=== PATIENT | female | born 1970 | race American Indian/Alaskan Native ===

== ENCOUNTER 2017-05-08 12:26 | Emergency (ER) | payer MEDICAID, OTHER ==
--- NOTE | 2017-05-08 13:16 | Cat Scan Report ---
CRANIAL CT SCAN: Slurred speech, right sided weakness. Serial contiguous axial images were obtained through the cranium. Intravenous contrast material was not administered. The ventricles are normal in size and appearance. There is no mass effect or midline shift. No areas of abnormally increased or decreased attenuation are seen. No mass lesion is seen. The mastoid air cells and visualized portions of the sinuses are normal. IMPRESSION: Cranial CT scan within normal limits.
[2017-05-08 14:00] LABS: Basophils % (Auto) 0.9 % (0.0-1.8); Eosinophils % (Auto) 1.8 % (0.0-4.3); Hematocrit 40.8 % (30.3-42.9); Hemoglobin 14.1 gm/dl (10.1-14.3); Mean Corpuscular HGB Conc 35 % (30-34); Mean Corpuscular Hemoglobin 32 pg (28-32); Mean Corpuscular Volume 93 fl (79-97); Platelet Count 316 K/mm3 (140-440); Red Blood Count 4.37 M/mm3 (3.65-5.03); Red Cell Distribution Width 13.1 % (13.2-15.2); White Blood Count 7.5 K/mm3 (4.5-11.0)
--- NOTE | 2017-05-08 14:04 | Emergency Department Report ---
ED Neuro Deficit HPI - General Chief Complaint: Neuro Symptoms/Deficit Stated Complaint: NEURO SYMPTOMS Time Seen by Provider: 05/08/17 13:02 Source: patient Mode of arrival: Wheelchair Limitations: No Limitations - History of Present Illness Initial Comments: Patient is a 46-year-old female past medical history of stroke who presents with new onset of right-sided weakness which began today at 6 in the morning. She says she woke up and she had worsening right sided weakness it was worse from her baseline. She went her neurologist who wanted her to be seen in the emergency department. Patient states that she has a mild headache the headache is a 4 out of 10 located to the frontal lobe does not radiate anywhere it's been going on for the last couple hours it was gradual in onset. Patient has no nausea or vomiting. She takes a daily aspirin daily and blood pressure medications. No fevers no trauma no diarrhea no abdominal pain. - Related Data Allergies/Adverse Reactions: Allergies Allergy/AdvReac Type Severity Reaction Status Date / Time Sulfa (Sulfonamide Allergy Rash Verified 05/08/17 12:30 Antibiotics) ED Review of Systems ROS: Stated complaint: NEURO SYMPTOMS Other details as noted in HPI Constitutional: denies: chills, fever Eyes: denies: eye pain, eye discharge, vision change ENT: denies: ear pain, throat pain Respiratory: denies: cough, shortness of breath, wheezing Cardiovascular: denies: chest pain, palpitations Endocrine: no symptoms reported Gastrointestinal: denies: abdominal pain, nausea, diarrhea Genitourinary: denies: urgency, dysuria, discharge Musculoskeletal: denies: back pain, joint swelling, arthralgia Skin: denies: rash, lesions Neurological: weakness, numbness. denies: headache, paresthesias Psychiatric: denies: anxiety, depression Hematological/Lymphatic: denies: easy bleeding, easy bruising ED Past Medical Hx - Past Medical History Hx Hypertension: Yes Hx CVA: Yes (x 12) - Surgical History Additional Surgical History: C section - Social History Smoking Status: Never Smoker Substance Use Type: None ED Neuro Physical Exam - General Limitations: No Limitations General appearance: alert Suspected Stroke: Yes - Head Head exam: Present: atraumatic, normocephalic - Eye Eye exam: Present: normal appearance, PERRL, EOMI - ENT ENT exam: Present: normal exam - Neck Neck exam: Present: normal inspection - Respiratory Respiratory exam: Present: normal lung sounds bilaterally - Cardiovascular Cardiovascular Exam: Present: regular rate - GI/Abdominal GI/Abdominal exam: Present: soft - Extremities Exam Extremities exam: Present: normal inspection, other (right upper arm and right lower leg weakness ) - Neurological Exam Neurological exam: Present: alert, other (right sided facial droop) - NIHSS Assessment Interval: 24 hours post onset of symptoms +-20 minutes 1a. Level of Consciousness: alert 1b. LOC Questions: answers 1 question correctly 1c. LOC Commands: performs 1 task correctly 2. Best Gaze: normal 3. Visual: no visual loss 4. Facial Palsy: complete paralysis 5b. Motor Arm Right: no movement 5a. Motor Arm Left: no drift 6a. Motor Leg Left: no drift 6b. Motor Leg Right: no movement 7. Limb Ataxia: absent 8. Sensory: mild/moderate sensory loss 9. Best Language: no aphasia 10. Dysarthria: mild/moderate dysarthria 11. Extinction/Inattention: no abnormality Total Score: 15 Stroke Severity: Moderate Stroke - Psychiatric Psychiatric exam: Present: normal affect - Skin Skin exam: Present: warm ED Course Vital Signs 05/08/17 05/08/17 05/08/17 12:30 13:07 13:15 Temperature 98.4 F Pulse Rate 86 64 68 Respiratory 18 17 Rate Blood Pressure 128/92 O2 Sat by Pulse 100 98 Oximetry 05/08/17 05/08/17 05/08/17 13:31 13:45 14:01 Temperature Pulse Rate 69 73 78 Respiratory 20 12 32 H Rate Blood Pressure 141/89 141/89 164/99 O2 Sat by Pulse 99 97 Oximetry 05/08/17 05/08/17 05/08/17 14:15 14:22 14:25 Temperature Pulse Rate 87 70 Respiratory 20 16 Rate Blood Pressure 164/99 O2 Sat by Pulse 98 99 Oximetry 05/08/17 15:08 Temperature Pulse Rate Respiratory 18 Rate Blood Pressure O2 Sat by Pulse Oximetry - Lab Data Result diagrams: 05/08/17 13:30 05/08/17 13:30 Lab Results 05/08/17 05/08/17 05/08/17 Range/Units 12:39 13:30 13:30 WBC 7.5 (4.5-11.0) K/mm3 RBC 4.37 (3.65-5.03) M/mm3 Hgb 14.1 (10.1-14.3) gm/dl Hct 40.8 (30.3-42.9) % MCV 93 (79-97) fl MCH 32 (28-32) pg MCHC 35 H (30-34) % RDW 13.1 L (13.2-15.2) % Plt Count 316 (140-440) K/mm3 Lymph % (Auto) 44.9 H (13.4-35.0) % [place] % (Auto) 7.4 H (0.0-7.3) % Eos % (Auto) 1.8 (0.0-4.3) % Baso % (Auto) 0.9 (0.0-1.8) % Lymph # 3.4 (1.2-5.4) K/mm3 [place] # 0.6 (0.0-0.8) K/mm3 Eos # 0.1 (0.0-0.4) K/mm3 Baso # 0.1 (0.0-0.1) K/mm3 Seg Neutrophils % 45.0 (40.0-70.0) % Seg Neutrophils # 3.4 (1.8-7.7) K/mm3 PT 13.6 (12.2-14.9) Sec. INR 0.99 (0.87-1.13) APTT 28.8 (24.2-36.6) Sec. Thrombin Time (15.1-19.6) Sec. Sodium (137-145) mmol/L Potassium (3.6-5.0) mmol/L Chloride (98-107) mmol/L Carbon Dioxide (22-30) mmol/L Anion Gap mmol/L BUN (7-17) mg/dL Creatinine (0.7-1.2) mg/dL Estimated GFR ml/min BUN/Creatinine Ratio % Glucose (65-100) mg/dL POC Glucose 92 (70-105) Calcium (8.4-10.2) mg/dL Troponin T (0.00-0.029) ng/mL 05/08/17 05/08/17 Range/Units 13:30 13:30 WBC (4.5-11.0) K/mm3 RBC (3.65-5.03) M/mm3 Hgb (10.1-14.3) gm/dl Hct (30.3-42.9) % MCV (79-97) fl MCH (28-32) pg MCHC (30-34) % RDW (13.2-15.2) % Plt Count (140-440) K/mm3 Lymph % (Auto) (13.4-35.0) % [place] % (Auto) (0.0-7.3) % Eos % (Auto) (0.0-4.3) % Baso % (Auto) (0.0-1.8) % Lymph # (1.2-5.4) K/mm3 [place] # (0.0-0.8) K/mm3 Eos # (0.0-0.4) K/mm3 Baso # (0.0-0.1) K/mm3 Seg Neutrophils % (40.0-70.0) % Seg Neutrophils # (1.8-7.7) K/mm3 PT (12.2-14.9) Sec. INR (0.87-1.13) APTT (24.2-36.6) Sec. Thrombin Time 17.0 (15.1-19.6) Sec. Sodium 139 (137-145) mmol/L Potassium 3.8 (3.6-5.0) mmol/L Chloride 99.5 (98-107) mmol/L Carbon Dioxide 24 (22-30) mmol/L Anion Gap 19 mmol/L BUN 12 (7-17) mg/dL Creatinine 0.7 (0.7-1.2) mg/dL Estimated GFR > 60 ml/min BUN/Creatinine Ratio 17 % Glucose 91 (65-100) mg/dL POC Glucose (70-105) Calcium 9.6 (8.4-10.2) mg/dL Troponin T < 0.010 (0.00-0.029) ng/mL - EKG Data -: EKG Interpreted by Me 05/08/17 15:44 EKG shows normal sinus rhythm no ST segment elevation or T-wave inversion. - Radiology Data Radiology results: report reviewed, image reviewed CT head: Show no acute intracranial process. - Medical Decision Making Chief medical diagnosis: Ischemic stroke Differential medical diagnosis: [place] paralysis, hypokalemia, hypoglycemia, hemorrhagic stroke I will get CT head, CBC, CMP, troponin, EKG, PTT and INR Patient woke up with her symptoms she is not a candidate for TPA and she woke up at 6 in the morning. Patient wants to leave AMA discussed risks of leaving AMA and the need for patient to have angioedema imaging and MRI to further see why she is having some knee strokes. Discussed with patient and she states that she wants to leave to take care of her younger son and she doesn't trust anyone to take care of her son other than her. Patient states that her partner will take her home. She also states that she takes a low-dose aspirin at home and her neurologist who sent her over here or write her a refill of her medications. - Core Measures Measure Exclusions: not indicated - Thrombolytic Inclusion/Exclusion Thrombolytic Exclusion Criteria: Symptom Onset > 3 Hours Thrombolytic Inclusion Criteria: NIH Stroke Scale Deficit, Age 18 or Older Critical care attestation.: If time is entered above; I have spent that time in minutes in the direct care of this critically ill patient, excluding procedure time. ED Disposition Clinical Impression: Right sided weakness, Tension headache, Facial paralysis on right side CVA (cerebral vascular accident) Qualifiers: CVA mechanism: unspecified Qualified Code(s): I63.9 - Cerebral infarction, unspecified Disposition: DC-07 LEFT AGAINST MED ADVICE Is pt being admited?: No Does the pt Need Aspirin: No Condition: Stable Instructions: Self Care Measures After a Stroke (ED) Additional Instructions: Please follow-up with your neurologist and please come back to the emergency department after having anymore weakness or side to come back for your stroke symptoms. Referrals: JEYSON GRAHAM MD [Staff Physician] - 3-5 Days Forms: AMA Form
[2017-05-08 14:12] LABS: INR 0.99 (0.87-1.13); Partial Thromboplastin Time 28.8 Sec. (24.2-36.6)
[2017-05-08 14:15] LABS: Anion Gap 19 mmol/L; BUN/Creatinine Ratio 17; Blood Urea Nitrogen 12 mg/dL (7-17); Calcium 9.6 mg/dL (8.4-10.2); Carbon Dioxide 24 mmol/L (22-30); Chloride 99.5 mmol/L (98-107); Glucose 91 mg/dL (65-100); Potassium 3.8 mmol/L (3.6-5.0); Sodium 139 mmol/L (137-145)
[2017-05-08] MEDS ORDERED: SUBLIMAZE IV ONE (14:51)
[2017-05-08 16:22] VITALS: BP 132/84
== END 2017-05-08 16:48 | disposition left against medical advice (07) ==
LOC: ED 12:26
DX: G51.0 Bell's palsy (principal); I63.9 Cerebral infarction, unspecified; G44.209 Tension-type headache, unspecified, not intractable; I10 Essential (primary) hypertension; Z88.2 Allergy status to sulfonamides
CPT/HCPCS: 36415; 70450; 80048; 82962; 84484; 85025; 85610; 85670; 85730; 93005; 93010; 96374; 99284; J3010

== ENCOUNTER 2019-04-08 09:40 | Outpatient (CLI) | payer MEDICAID ==
[2019-04-08] MEDS ORDERED: WATER FOR INJ Sterile (PF) 10 ML ONE (10:48)
[2019-04-08] MEDS ORDERED: SINCALIDE 5 MCG VIAL IV ONE ×2 (10:48→12:38)
--- NOTE | 2019-04-08 13:38 | Nuclear Medicine Report ---
NUCLEAR MEDICINE HEPATOBILIARY SCAN INDICATION / CLINICAL INFORMATION: Nausea and vomiting with right upper quadrant pain. TECHNIQUE: Radiotracer: Tc-99m mebrofenin (by IV): 5 mCi. Gallbladder Stimulant: Cholecystokinin (in mcg by IV): 1.47 COMPARISON: None available. FINDINGS: HEPATIC ACTIVITY: Normal. BILIARY ACTIVITY: Normal. GALLBLADDER ACTIVITY: Normal SMALL BOWEL ACTIVITY: Normal GALLBLADDER EJECTION FRACTION % (if calculated): 30 - Normal at 30 min with Cholecystokinin: >35% - Normal at 60 min with Ensure/Glucerna: >33% PATIENT SYMPTOM REPRODUCTION: No symptoms reported.. IMPRESSION: 1. Biliary obstruction: None. 2. Gallbladder ejection fraction: Below normal. Signer Name: Carlo Isidro MD Signed: 04/08/2019 1:33 PM Workstation Name: [email or web address] [id number]
== END 2019-04-08 09:41 | disposition home or self-care (01) ==
LOC: NM 09:40
PROVIDERS: ATTEND Student in an Organized Health Care Education/Training Program
DX: K83.1 Obstruction of bile duct (principal); K21.9 Gastro-esophageal reflux disease without esophagitis; I10 Essential (primary) hypertension; Z86.73 Personal history of transient ischemic attack (TIA), and cerebral infarction without residual deficits
CPT/HCPCS: 78227; A9537; J2805; 96374